=== PATIENT | female | born 1975 | race Caucasian/White ===

== ENCOUNTER 2018-10-06 11:39 | Emergency (ER) | payer BC ==
[~2018-10-06] VITALS: Ht 172.7 cm; Wt 99.8 kg
[~2018-10-06 11:39] MED LIST: WELLBUTRIN SR150 MG
--- OUTSIDE RECORDS SUMMARY | 2018-10-06 11:42 | XMS REPORT | Clinical Summary ---
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 Last Filed Vital Signs Not on file Plan of Treatment Health Maintenance Due Date Last Done Comments CERVICAL CANCER SCREENING 11/20/1995 INFLUENZA VACCINE 01/18/2019 Results Not on fileafter 10/05/2017 Insurance Payer Benefit Subscriber ID Type Phone Address Plan / Group BCBS BCBS xxxxxxxxxxxx PPO CHOICE PPO/NILSA TOTH PPO Advance Directives Patient has advance care planning documents on file. For more information, alex young contact: Ritesh Pearl [address] [place] [address]
[2018-10-06] MEDS ORDERED: SODIUM CHLORIDE 0.9% 1000ML 1,000 ML IV STA (12:12)
[2018-10-06] MEDS ORDERED: HYDROCODONE/APAP 10MG-325MG TAB PO ONE (12:30)
[2018-10-06] MEDS ORDERED: ONDANSETRON HCL INJ 2MG/ML 2ML 2 MG/ML VIAL IV ONE (12:30)
[2018-10-06] MEDS ORDERED: LIDOCAINE 5% PATCH TP SCH (12:30)
[2018-10-06] MEDS ORDERED: MORPHINE SULFATE INJ 4 MG/ML INJ 1ML IV ONE (12:30)
--- NOTE | 2018-10-06 12:52 | Diagnostic Imaging Report ---
EXAM: ABDOMEN-1VIEW (KUB) DATE: 10/06/2018 12:20 PM INDICATION: Right abdominal pain postop COMPARISON: None FINDINGS: Supine views of the abdomen show a normal distribution of air in the small and large bowel. Moderate retained stool in the colon. No specific abnormal soft tissue calcification. Cholecystectomy clips are seen in the right upper quadrant. Skin sindhu are seen over the upper central abdomen, right mid abdomen and midline upper pelvis. No acute bony abnormality. IMPRESSION: No bowel dilatation or evidence for bowel obstruction. Signed by: Dr. Peewee Leon M.D. on 10/06/2018 12:49 PM
[2018-10-06 13:56] VITALS: BP 125/73
== END 2018-10-06 14:22 | disposition home or self-care (01) ==
LOC: ER 11:39
DX: R10.84 Generalized abdominal pain (principal); F17.200 Nicotine dependence, unspecified, uncomplicated
CPT/HCPCS: 74018; 99283; J2270; J2405; J7030